=== PATIENT | female | born 1985 | race African-American/Black ===

== ENCOUNTER 2017-12-19 14:24 | Inpatient (IN) ==
--- NOTE | 2017-12-19 18:53 | ED ---
HPI General Chief Complaint: Psychiatric Symptoms Stated Complaint: Psy Time Seen by Provider: 12/20/17 19:38 Source: patient Mode of arrival: ambulatory Limitations: no limitations History of Present Illness HPI Narrative: 32-year-old female with a history of asthma presents to the emergency department for evaluation for suicidal ideation. She comes in voluntarily from [facility]. States that she arrived to [facility] around 1 PM today for evaluation and she was advised to come to the ED for further evaluation. She states that she has a history of depression. Says she had a baby 6 months ago and has been stressed out. She says her special education instructor's name is Dr. Chavez. She does not currently have a primary care physician. Her last checkup was approximately 1 week ago. Says that she has felt suicidal for the last 2 days but does not have a plan. She has a history of suicide attempt by cutting her wrist. She states she does take prenatals. Patient admits to using cocaine yesterday. She denies alcohol use however. MD complaint: suicidal ideation and feels depressed Onset (ago): day(s) Duration: constant History of same: Yes Relieving factors: none Exacerbating factors: none Context: recent drug abuse Associated psychiatric symptoms: depression and suicidal ideation Associated symptoms: denies other symptoms Treatments prior to arrival: none If self harm: admits thoughts of self harm Related Data Home Medications Medication Instructions Recorded Confirmed labetalol 100 mg PO TID 12/19/17 12/19/17 Previous Rx's Medication Instructions Recorded labetalol 200 mg PO BID #60 tab 12/22/17 Allergies Allergy/AdvReac Type Severity Reaction Status Date / Time No Known Allergies Allergy Verified 12/19/17 18:45 Review of Systems ROS: all other systems reviewed are negative [facility] History History Provided By: Patient Social History Social History Substance History: Active Abuse Smoking Status: Current every day smoker Tobacco Type: Cigarettes How Often Do You Have a Drink Containing Alcohol: Never Hx Recent Travel: No Exam Narrative Exam Narrative: GENERAL: WD, WN in NAD SKIN: Focused skin assessment warm/dry. HEAD: Atraumatic. Normocephalic. EYES: Pupils equal and round. No scleral icterus. No injection or drainage. ENT: No nasal bleeding or discharge. Mucous membranes pink and moist. NECK: Trachea midline. No JVD. CARDIOVASCULAR: Regular rate and rhythm. No murmur appreciated. RESPIRATORY: No accessory muscle use. Clear to auscultation. Breath sounds equal bilaterally. GASTROINTESTINAL: Abdomen gravid, nontender to palpation. No CVA tenderness. MUSCULOSKELETAL: No obvious deformities. No clubbing. No cyanosis. No edema. NEUROLOGICAL: Awake and alert. No obvious cranial nerve deficits. Motor grossly within normal limits. Normal speech. PSYCHIATRIC: Appropriate mood and affect; insight and judgment normal. Course Initial Documented Vital Signs Temperature 98.0 F 12/19/17 14:47 Pulse Rate 97 H 12/19/17 14:47 Respiratory Rate 20 12/19/17 14:47 Blood Pressure 161/76 H 12/19/17 14:47 Pulse Oximetry 100 12/19/17 14:47 Last Documented Vital Signs Temperature 98.3 F 12/20/17 22:41 Pulse Rate 112 H 12/21/17 01:04 Respiratory Rate 18 12/20/17 22:41 Blood Pressure 162/100 H 12/21/17 01:04 Pulse Oximetry 98 12/20/17 22:41 Medical Decision Making ELIZABETH Attestation ELIZABETH supervised visit: Yes Attestation: I, Dr. Sotelo, have reviewed the advance practice practitioner's documentation and am in agreement, met with the patient face to face, made the diagnosis, and the medical decision making was done by me. *My assessment and Findings: Patient seen and examined by me at 1900 on December 20. Is a 32-year-old female who is 5 months , becoming more hypertensive with blood pressure 188/110. Patient seen and examined by me has no complaints. She states she did have some leg swelling earlier in this but this resolved. No visual complaints. She also reports a history that her [facility] DIRECTOR had her do a 24-hour urine test and was told everything was fine. No history of preeclampsia with previous pregnancies. She has not had any bleeding abdominal pain or discharge. UA is been added, patient states she is on medication for her blood pressure for the . She is given us permission to go through her belongings to see what the pill bottle says. Of asked the nurses to do this for me so we can restart her on blood pressure medication. She was counseled to stop doing cocaine. The patient is on labetalol 100 mg p.o. twice daily, I think that this is probably less than desirable given the patient is using cocaine. I would like to have a UA on file so that I can adjust her medications with OB ED in consultation. For the time being a dose of hydralazine has been ordered. Patient has no protein in urine, have a low suspicion for preeclampsia, I recommend against the use of beta-blockers in this patient he uses cocaine. Recommend consultation with [facility] DIRECTOR for further management of her blood pressure. MDM Narrative Medical decision making narrative: 32-year-old female 5 months gravid presents to the emergency department with suicidal ideations for the last 2 days. She states she went to [facility] earlier today but was advised to come to the emergency department as patient is . She has no complaints other than feeling depressed and suicidal. She admits to using cocaine yesterday. Vital signs are stable. Patient is currently voluntary however, if patient chooses to leave, I recommend placing patient under [facility] act. Labs ordered for evaluation. POc OB US demonstrates and active, heart tones 143BPM, regular. Patient signed out to me at end of shift. 32 YO ~5month female presents to the ED requesting psychiatric evaluation. She denies SI or HI. She endorses using cocaine, last use yesterday. She endorses movement today, denies vaginal bleeding of abdominal pain. Vitals reviewed. Physical exam is reassuring. Bedside US shows active movement. No concerning abnormalities of the CBC or CMP. Patient is medically clear for psychiatric evaluation. Medical Screen Exam Complete: Yes Emergency Medical Condition: Yes Differential Diagnosis Differential Diagnosis: Suicide ideations, depression, malingering, cocaine abuse Lab Data Result diagrams: 12/19/17 19:30 12/21/17 09:26 Lab Results 12/19/17 12/19/17 12/19/17 Range/Units 19:30 19:30 22:15 WBC 6.5 (4.0-11.0) th/mm3 RBC 3.91 L (4.00-5.30) mil/mm3 Hgb 11.6 (11.6-15.3) gm/dL Hct 34.5 L (35.0-46.0) % MCV 88.5 (80.0-100.0) fL MCH 29.8 (27.0-34.0) pg MCHC 33.7 (32.0-36.0) % RDW 13.5 (11.6-17.2) % Plt Count 266 (150-450) th/mm3 MPV 7.1 (7.0-11.0) fL Neut % (Auto) 63.9 (16.0-70.0) % Lymph % (Auto) 23.0 (9.0-44.0) % Island % (Auto) 7.4 (0.0-8.0) % Eos % (Auto) 3.9 (0.0-4.0) % Baso % (Auto) 1.8 (0.0-2.0) % Neut # (Auto) 4.2 (1.8-7.7) th/mm3 Lymph # (Auto) 1.5 (1.0-4.8) th/mm3 Island # (Auto) 0.5 (0.0-0.9) th/mm3 Eos # (Auto) 0.3 (0.0-0.4) th/mm3 Baso # (Auto) 0.1 (0.0-0.2) th/mm3 WBC Differential . Differential Comment Auto diff final Sodium 139 (136-145) meq/L Potassium 3.7 (3.5-5.1) meq/L Chloride 107 (98-107) meq/L Carbon Dioxide 23.9 (21.0-32.0) meq/L Anion Gap 8 (5-15) meq/L BUN 8 (7-18) mg/dL Creatinine 0.60 (0.50-1.00) mg/dL Estimated GFR Greater than 89 (>89) mL/min Random Glucose 98 (74-106) mg/dL Hemoglobin A1c (4.3-6.0) % Calcium 8.5 (8.5-10.1) mg/dL Total Bilirubin 0.2 (0.2-1.0) mg/dL AST 9 L (15-37) U/L ALT 14 (10-53) U/L Alkaline Phosphatase 58 (45-117) U/L Total Protein 6.8 (6.4-8.2) g/dL Albumin 2.7 L (3.4-5.0) g/dL Triglycerides (42-150) mg/dL Cholesterol (120-200) mg/dL LDL Cholesterol, Calc (0-99) mg/dL HDL Cholesterol (40.0-60.0) mg/dL Cholesterol/HDL Ratio Ratio TSH 0.984 (0.358-3.740) uIU/mL Urine Color (Yellw/Straw) Urine Clarity (Clear) Urine pH (5.0-8.5) Ur Specific Deport (1.002-1.035) Urine Protein (Neg-Trace) mg/dL Urine Glucose (UA) (Negative) mg/dL Urine Ketones (Negative) mg/dL Urine Occult Blood (Negative) Urine Nitrate (Negative) Urine Bilirubin (Negative) Urine Urobilinogen (Less than 2) mg/dL Ur Leukocyte Esterase (Negative) Urine WBC (0-5) /hpf Ur Squamous Epith Cells (0-5) /hpf Ur Microscopic Review Urine Opiates Screen Neg (Neg) Ur Barbiturates Screen Neg (Neg) Ur Amphetamines Screen Neg (Neg) U Benzodiazepines Scrn Neg (Neg) Urine Cocaine Screen Pos H (Neg) U Cannabinoids Screen Neg (Neg) Serum Alcohol Less than 3 (0-5) mg/dL Chlam trachomat DNA PCR (Not Detect) HIV 1&2 Ab/P24 Ag 4thGn (Nonreactive) N.gonorrhoeae DNA (PCR) (Not Detect) Rubella Immunity Screen (Immune) Rubella Ab, Quant (10.0-500.0) IU/mL Blood Type Blood Type Recheck Antibody Screen 12/20/17 12/20/17 12/21/17 Range/Units 19:15 19:50 09:26 WBC (4.0-11.0) th/mm3 RBC (4.00-5.30) mil/mm3 Hgb (11.6-15.3) gm/dL Hct (35.0-46.0) % MCV (80.0-100.0) fL MCH (27.0-34.0) pg MCHC (32.0-36.0) % RDW (11.6-17.2) % Plt Count (150-450) th/mm3 MPV (7.0-11.0) fL Neut % (Auto) (16.0-70.0) % Lymph % (Auto) (9.0-44.0) % Island % (Auto) (0.0-8.0) % Eos % (Auto) (0.0-4.0) % Baso % (Auto) (0.0-2.0) % Neut # (Auto) (1.8-7.7) th/mm3 Lymph # (Auto) (1.0-4.8) th/mm3 Island # (Auto) (0.0-0.9) th/mm3 Eos # (Auto) (0.0-0.4) th/mm3 Baso # (Auto) (0.0-0.2) th/mm3 WBC Differential Differential Comment Sodium 140 (136-145) meq/L Potassium 3.4 L (3.5-5.1) meq/L Chloride 105 (98-107) meq/L Carbon Dioxide 23.1 (21.0-32.0) meq/L Anion Gap 12 (5-15) meq/L BUN 8 (7-18) mg/dL Creatinine 0.59 (0.50-1.00) mg/dL Estimated GFR Greater than 89 (>89) mL/min Random Glucose 101 (74-106) mg/dL Hemoglobin A1c (4.3-6.0) % Calcium 8.2 L (8.5-10.1) mg/dL Total Bilirubin (0.2-1.0) mg/dL AST (15-37) U/L ALT (10-53) U/L Alkaline Phosphatase (45-117) U/L Total Protein (6.4-8.2) g/dL Albumin (3.4-5.0) g/dL Triglycerides 68 (42-150) mg/dL Cholesterol 135 (120-200) mg/dL LDL Cholesterol, Calc 61 (0-99) mg/dL HDL Cholesterol 60.1 H (40.0-60.0) mg/dL Cholesterol/HDL Ratio 2.24 Ratio TSH (0.358-3.740) uIU/mL Urine Color Yellow (Yellw/Straw) Urine Clarity Clear (Clear) Urine pH 6.0 (5.0-8.5) Ur Specific Deport 1.011 (1.002-1.035) Urine Protein Negative (Neg-Trace) mg/dL Urine Glucose (UA) Negative (Negative) mg/dL Urine Ketones Negative (Negative) mg/dL Urine Occult Blood Negative (Negative) Urine Nitrate Negative (Negative) Urine Bilirubin Negative (Negative) Urine Urobilinogen Less than 2 (Less than 2) mg/dL Ur Leukocyte Esterase Moderate H (Negative) Urine WBC 3 (0-5) /hpf Ur Squamous Epith Cells 4 (0-5) /hpf Ur Microscopic Review Not Reportable Urine Opiates Screen (Neg) Ur Barbiturates Screen (Neg) Ur Amphetamines Screen (Neg) U Benzodiazepines Scrn (Neg) Urine Cocaine Screen (Neg) U Cannabinoids Screen (Neg) Serum Alcohol (0-5) mg/dL Chlam trachomat DNA PCR Not detected (Not Detect) HIV 1&2 Ab/P24 Ag 4thGn (Nonreactive) N.gonorrhoeae DNA (PCR) Not detected (Not Detect) Rubella Immunity Screen (Immune) Rubella Ab, Quant (10.0-500.0) IU/mL Blood Type Blood Type Recheck Antibody Screen 12/21/17 12/21/17 12/21/17 Range/Units 09:26 09:26 09:26 WBC (4.0-11.0) th/mm3 RBC (4.00-5.30) mil/mm3 Hgb (11.6-15.3) gm/dL Hct (35.0-46.0) % MCV (80.0-100.0) fL MCH (27.0-34.0) pg MCHC (32.0-36.0) % RDW (11.6-17.2) % Plt Count (150-450) th/mm3 MPV (7.0-11.0) fL Neut % (Auto) (16.0-70.0) % Lymph % (Auto) (9.0-44.0) % Island % (Auto) (0.0-8.0) % Eos % (Auto) (0.0-4.0) % Baso % (Auto) (0.0-2.0) % Neut # (Auto) (1.8-7.7) th/mm3 Lymph # (Auto) (1.0-4.8) th/mm3 Island # (Auto) (0.0-0.9) th/mm3 Eos # (Auto) (0.0-0.4) th/mm3 Baso # (Auto) (0.0-0.2) th/mm3 WBC Differential Differential Comment Sodium (136-145) meq/L Potassium (3.5-5.1) meq/L Chloride (98-107) meq/L Carbon Dioxide (21.0-32.0) meq/L Anion Gap (5-15) meq/L BUN (7-18) mg/dL Creatinine (0.50-1.00) mg/dL Estimated GFR (>89) mL/min Random Glucose (74-106) mg/dL Hemoglobin A1c 5.5 (4.3-6.0) % Calcium (8.5-10.1) mg/dL Total Bilirubin (0.2-1.0) mg/dL AST (15-37) U/L ALT (10-53) U/L Alkaline Phosphatase (45-117) U/L Total Protein (6.4-8.2) g/dL Albumin (3.4-5.0) g/dL Triglycerides (42-150) mg/dL Cholesterol (120-200) mg/dL LDL Cholesterol, Calc (0-99) mg/dL HDL Cholesterol (40.0-60.0) mg/dL Cholesterol/HDL Ratio Ratio TSH (0.358-3.740) uIU/mL Urine Color (Yellw/Straw) Urine Clarity (Clear) Urine pH (5.0-8.5) Ur Specific Deport (1.002-1.035) Urine Protein (Neg-Trace) mg/dL Urine Glucose (UA) (Negative) mg/dL Urine Ketones (Negative) mg/dL Urine Occult Blood (Negative) Urine Nitrate (Negative) Urine Bilirubin (Negative) Urine Urobilinogen (Less than 2) mg/dL Ur Leukocyte Esterase (Negative) Urine WBC (0-5) /hpf Ur Squamous Epith Cells (0-5) /hpf Ur Microscopic Review Urine Opiates Screen (Neg) Ur Barbiturates Screen (Neg) Ur Amphetamines Screen (Neg) U Benzodiazepines Scrn (Neg) Urine Cocaine Screen (Neg) U Cannabinoids Screen (Neg) Serum Alcohol (0-5) mg/dL Chlam trachomat DNA PCR (Not Detect) HIV 1&2 Ab/P24 Ag 4thGn Reflex H (Nonreactive) N.gonorrhoeae DNA (PCR) (Not Detect) Rubella Immunity Screen Indeterminate (Immune) Rubella Ab, Quant 7.8 L (10.0-500.0) IU/mL Blood Type Blood Type Recheck Antibody Screen 12/21/17 Range/Units 09:26 WBC (4.0-11.0) th/mm3 RBC (4.00-5.30) mil/mm3 Hgb (11.6-15.3) gm/dL Hct (35.0-46.0) % MCV (80.0-100.0) fL MCH (27.0-34.0) pg MCHC (32.0-36.0) % RDW (11.6-17.2) % Plt Count (150-450) th/mm3 MPV (7.0-11.0) fL Neut % (Auto) (16.0-70.0) % Lymph % (Auto) (9.0-44.0) % Island % (Auto) (0.0-8.0) % Eos % (Auto) (0.0-4.0) % Baso % (Auto) (0.0-2.0) % Neut # (Auto) (1.8-7.7) th/mm3 Lymph # (Auto) (1.0-4.8) th/mm3 Island # (Auto) (0.0-0.9) th/mm3 Eos # (Auto) (0.0-0.4) th/mm3 Baso # (Auto) (0.0-0.2) th/mm3 WBC Differential Differential Comment Sodium (136-145) meq/L Potassium (3.5-5.1) meq/L Chloride (98-107) meq/L Carbon Dioxide (21.0-32.0) meq/L Anion Gap (5-15) meq/L BUN (7-18) mg/dL Creatinine (0.50-1.00) mg/dL Estimated GFR (>89) mL/min Random Glucose (74-106) mg/dL Hemoglobin A1c (4.3-6.0) % Calcium (8.5-10.1) mg/dL Total Bilirubin (0.2-1.0) mg/dL AST (15-37) U/L ALT (10-53) U/L Alkaline Phosphatase (45-117) U/L Total Protein (6.4-8.2) g/dL Albumin (3.4-5.0) g/dL Triglycerides (42-150) mg/dL Cholesterol (120-200) mg/dL LDL Cholesterol, Calc (0-99) mg/dL HDL Cholesterol (40.0-60.0) mg/dL Cholesterol/HDL Ratio Ratio TSH (0.358-3.740) uIU/mL Urine Color (Yellw/Straw) Urine Clarity (Clear) Urine pH (5.0-8.5) Ur Specific Deport (1.002-1.035) Urine Protein (Neg-Trace) mg/dL Urine Glucose (UA) (Negative) mg/dL Urine Ketones (Negative) mg/dL Urine Occult Blood (Negative) Urine Nitrate (Negative) Urine Bilirubin (Negative) Urine Urobilinogen (Less than 2) mg/dL Ur Leukocyte Esterase (Negative) Urine WBC (0-5) /hpf Ur Squamous Epith Cells (0-5) /hpf Ur Microscopic Review Urine Opiates Screen (Neg) Ur Barbiturates Screen (Neg) Ur Amphetamines Screen (Neg) U Benzodiazepines Scrn (Neg) Urine Cocaine Screen (Neg) U Cannabinoids Screen (Neg) Serum Alcohol (0-5) mg/dL Chlam trachomat DNA PCR (Not Detect) HIV 1&2 Ab/P24 Ag 4thGn (Nonreactive) N.gonorrhoeae DNA (PCR) (Not Detect) Rubella Immunity Screen (Immune) Rubella Ab, Quant (10.0-500.0) IU/mL Blood Type B Positive Blood Type Recheck Required Antibody Screen Negative Discharge Plan Discharge Disposition Patient Disposition: 30 Still Patient Discharge Condition Condition: Stable Discharge Details Diagnosis: Depressed, Suicidal ideations Physicians Team ED Provider: Donny Sotelo Primary Care Provider: UNKNOWN, Attending Provider: Hieu Norton Other Providers: Alberto Hood ED Status: Left Department Discharge Information Discharge Date/Time: 12/20/17 22:12
[2017-12-19 20:21] LABS: Baso # (Auto) 0.1 th/mm3 (0.0-0.2); Baso % (Auto) 1.8 % (0.0-2.0); Eos # (Auto) 0.3 th/mm3 (0.0-0.4); Eos % (Auto) 3.9 % (0.0-4.0); Hematocrit 34.5 % (35.0-46.0); Hemoglobin 11.6 gm/dL (11.6-15.3); Lymph # (Auto) 1.5 th/mm3 (1.0-4.8); Mean Corpuscular HGB Conc 33.7 % (32.0-36.0); Mean Corpuscular Hemoglobin 29.8 pg (27.0-34.0); Mean Corpuscular Volume 88.5 fL (80.0-100.0); Mean Platelet Volume 7.1 fL (7.0-11.0); Mono # (Auto) 0.5 th/mm3 (0.0-0.9); Mono % (Auto) 7.4 % (0.0-8.0); Neut # (Auto) 4.2 th/mm3 (1.8-7.7); Neut % (Auto) 63.9 % (16.0-70.0); Platelet Count 266 th/mm3 (150-450); Red Blood Count 3.91 mil/mm3 (4.00-5.30); Red Cell Distribution Width 13.5 % (11.6-17.2); White Blood Count 6.5 th/mm3 (4.0-11.0)
[2017-12-19 20:45] LABS: Albumin 2.7 g/dL (3.4-5.0); Anion Gap 8 meq/L (5-15); Aspartate Aminotransferase 9 U/L (15-37); Blood Urea Nitrogen 8 mg/dL (7-18); Calcium 8.5 mg/dL (8.5-10.1); Carbon Dioxide 23.9 meq/L (21.0-32.0); Chloride 107 meq/L (98-107); Glomerular Filtration Rate Greater Than 89 mL/min (>89); Glucose,Random 98 mg/dL (74-106); Potassium 3.7 meq/L (3.5-5.1); Sodium 139 meq/L (136-145)
[2017-12-19 20:46] LABS: Alanine Aminotransferase 14 U/L (10-53)
[2017-12-19 20:56] LABS: Alkaline Phosphatase 58 U/L (45-117); Thyroid Stimulating Hormone 0.984 uIU/mL (0.358-3.740); Total Protein 6.8 g/dL (6.4-8.2)
[2017-12-19 22:42] LABS: Amphetamine Screen,Urine Neg (Neg); Barbiturate Screen,Urine Neg (Neg); Cannabinoid Screen,Urine Neg (Neg); Cocaine Screen,Urine Pos (Neg)
[2017-12-19 22:56] LABS: Opiate Screen,Urine Neg (Neg)
[2017-12-20] MEDS ORDERED: hydrALAZINE 25 MG Tablet PO ONE (19:41)
--- NOTE | 2017-12-20 20:02 | ED ---
HPI - Psych - General Source: patient, RN notes reviewed Mode of arrival: ambulatory Limitations: no limitations - History of Present Illness MD complaint: suicidal ideation, feels depressed Onset (ago): day(s) Duration: constant History of same: Yes Relieving factors: none Exacerbating factors: none Context: recent drug abuse, not taking psychiatric medications, other Associated psychiatric symptoms: depression, suicidal ideation () Associated symptoms: denies other symptoms Treatments prior to arrival: none If self harm: admits thoughts of self harm - General Chief Complaint: Psychiatric Symptoms Stated Complaint: Psy Time Seen by Provider: 12/20/17 19:38 - History of Present Illness HPI Narrative: History of Present Illness HPI Narrative: 32-year-old, single, female, , approximately 5 months ,lives with her cousin and her aunt, with a history of depression, hx of suicidal gestures by cutting her wrists, cocaine use disorder, who presents to the emergency department on a voluntary status for psychiatric evaluation with chief complaint of increase in symptoms of depression, feeling overwhelmed, as well as reporting suicidal ideation. She is sent from [facility] as she is out of their scope of practice. She states that she has a history of post depression. She has a six month old infant. All her children have been adopted by family members due to her substance abuse. EMR reviewed. No previous contact with [facility] psychiatry. Labs reviewed. Current toxicology is positive for cocaine. Her blood pressure has been elevated and ED provider, Dr. Sotelo has been made aware. Patient is seen in J pod. She is alert and oriented. Speech is clear and of normal rate and tone. Patient with decreased eye contact. She continues to endorse depressed mood, feeling overwhelmed, suicidal ideation. Her plan was to take pills when she was at home. She contracts for safety here in the hospital. In terms of her substance use she states that she uses cocaine approximately 3 times a week. Denies any other substance use (Oliva,Yesenia) - Related Data Home Medications Medication Instructions Recorded Confirmed labetalol 100 mg PO BID 12/19/17 12/19/17 Allergies Allergy/AdvReac Type Severity Reaction Status Date / Time No Known Allergies Allergy Verified 12/19/17 18:45 [facility] - History History Provided By: Patient - Medical History Medical History: Medical History (Last Updated 12/19/17 @ 18:47 by Krystal Liza) Asthma Cocaine abuse Cocaine abuse affecting - Tobacco History Tobacco Use In Past 30 Days: Yes Smoking Status: Current every day smoker Tobacco Type: Cigarettes - Alcohol History How Often Do You Have a Drink Containing Alcohol: Never - Substance Use History Substance History: Active Abuse - Substance Use Type Crack/Cocaine Status: Active Route Used: Inhalation - Travel History Recent Travel in the [place] Within the Last 8 Weeks: No Recent Travel Out of the Country Within the Last 8 Weeks: No - Immunization History Tetanus Immunization: <5 Years Psychiatric History - Psychiatric History Psychiatric Treatment History: Denies Previous Treatment History of Inpatient Treatment: Yes Firearms in Home: No - Psychiatric History Reports history of inpatient treatment at [facility] after the delivery of her last child. She was prescribed medication but stopped after she became again. One previous history of suicidal ideation with intent to cut her wrists. (Yesenia Oliva) Physical Exam - General Limitations: no limitations Mental Status Examination Consciousness: Alert Orientation: x4 Motor Activity: Normal gait Speech: Hesitant Language: Adequate Fund of Knowledge: Adequate Attention and Concentration: Adequate Memory: Unremarkable Mood: Sad Affect: Sad Thought Process & Associations: Intact, Logical, Goal directed Thought Content: Appropriate Hallucination Type: None Delusion Type: None Suicidal Ideation: Yes Suicidal Plan: Yes Suicidal Intention: No Homicidal Ideation: No Homicidal Plan: No Homicidal Intention: No Insight: Fair Judgment: Poor Initial Documented Vital Signs Temperature 98.0 F 12/19/17 14:47 Pulse Rate 97 H 12/19/17 14:47 Respiratory Rate 20 12/19/17 14:47 Blood Pressure 161/76 H 12/19/17 14:47 Pulse Oximetry 100 12/19/17 14:47 Last Documented Vital Signs Temperature 98.0 F 12/19/17 14:47 Pulse Rate 98 H 12/20/17 19:50 Respiratory Rate 16 12/20/17 19:50 Blood Pressure 185/114 H 12/20/17 19:50 Pulse Oximetry 100 12/20/17 19:50 MDM - Psych - Diagnosis (1) Depressive disorder Status: Acute (2) Cocaine abuse Status: Acute (3) Substance induced mood disorder Status: Acute - Lab Data Result diagrams: 12/19/17 19:30 12/19/17 19:30 - MDM Narrative Medical decision making narrative: 32-year-old female with history of depression who is currently approximately 20 weeks gestation. She presents to the ED on a voluntary basis after she was seen at [facility]. She is reporting depressed mood with suicidal ideation with plan of taking her pills. The patient also reports continued use of cocaine throughout her . The patient meets criteria for inpatient psychiatric treatment for further evaluation, safety and stabilization. (Yesenia Oliva) - Lab Data Lab Results 12/19/17 12/19/17 12/19/17 Range/Units 19:30 19:30 22:15 WBC 6.5 (4.0-11.0) th/mm3 RBC 3.91 L (4.00-5.30) mil/mm3 Hgb 11.6 (11.6-15.3) gm/dL Hct 34.5 L (35.0-46.0) % MCV 88.5 (80.0-100.0) fL MCH 29.8 (27.0-34.0) pg MCHC 33.7 (32.0-36.0) % RDW 13.5 (11.6-17.2) % Plt Count 266 (150-450) th/mm3 MPV 7.1 (7.0-11.0) fL Neut % (Auto) 63.9 (16.0-70.0) % Lymph % (Auto) 23.0 (9.0-44.0) % [place] % (Auto) 7.4 (0.0-8.0) % Eos % (Auto) 3.9 (0.0-4.0) % Baso % (Auto) 1.8 (0.0-2.0) % Neut # (Auto) 4.2 (1.8-7.7) th/mm3 Lymph # (Auto) 1.5 (1.0-4.8) th/mm3 [place] # (Auto) 0.5 (0.0-0.9) th/mm3 Eos # (Auto) 0.3 (0.0-0.4) th/mm3 Baso # (Auto) 0.1 (0.0-0.2) th/mm3 WBC Differential . Differential Comment Auto diff final Sodium 139 (136-145) meq/L Potassium 3.7 (3.5-5.1) meq/L Chloride 107 (98-107) meq/L Carbon Dioxide 23.9 (21.0-32.0) meq/L Anion Gap 8 (5-15) meq/L BUN 8 (7-18) mg/dL Creatinine 0.60 (0.50-1.00) mg/dL Estimated GFR Greater than 89 (>89) mL/min Random Glucose 98 (74-106) mg/dL Calcium 8.5 (8.5-10.1) mg/dL Total Bilirubin 0.2 (0.2-1.0) mg/dL AST 9 L (15-37) U/L ALT 14 (10-53) U/L Alkaline Phosphatase 58 (45-117) U/L Total Protein 6.8 (6.4-8.2) g/dL Albumin 2.7 L (3.4-5.0) g/dL TSH 0.984 (0.358-3.740) uIU/mL Urine Opiates Screen Neg (Neg) Ur Barbiturates Screen Neg (Neg) Ur Amphetamines Screen Neg (Neg) U Benzodiazepines Scrn Neg (Neg) Urine Cocaine Screen Pos H (Neg) U Cannabinoids Screen Neg (Neg) Serum Alcohol Less than 3 (0-5) mg/dL
[2017-12-20] MEDS ORDERED: Aluminum/Magnesium/Simethacone Susp 30 ML UDC PO PRN (20:21)
[2017-12-20 20:29] LABS: Bilirubin,Urine Negative (Negative); Clarity,Urine Clear (Clear); Color,Urine Yellow (Yellw/Straw); Glucose,Urine (UA) Negative (Negative); Leukocyte Esterase,Urine Moderate (Negative); Nitrite,Urine Negative (Negative); Specific Gravity,Urine 1.011 (1.002-1.035); Squamous Epithelial Cell,Urine 4 /hpf (0-5)
[2017-12-20 22:42] VITALS: RESP 18; TEMP 98.3; O2SAT 98
[2017-12-20] MEDS ORDERED: Acetaminophen 325 MG Tablet PO PRN (22:56)
[2017-12-20] MEDS ORDERED: Zolpidem Tartrate 5 MG Tablet PO PRN (22:56)
[2017-12-20] MEDS ORDERED: Labetalol HCl Inj 100 MG/20 ML Vial IV.PUSH PRN ×3 (22:56→23:19)
[2017-12-20] MEDS ORDERED: Docusate Sodium 100 MG Capsule PO PRN (22:56)
[2017-12-20] MEDS ORDERED: Labetalol 200 MG Tablet PO SCH (23:10)
--- NOTE | 2017-12-20 23:26 | P.CONOB ---
History of Present Illness Consult date: 12/20/17 Requesting Physician: Yesenia Oliva Reason for Consult: HTN in preg Primary Care Physician: UNKNOWN Dr. Diop in [place] Chief Complaint: High blood pressure History of Present Illness: Patient is a 32-year-old black female with 3 prior previous vaginal deliveries last one 6 months ago presents, at approximately 20 weeks gestation [address] Diop in [place] for her care, and the patient is admitted to the [facility] for a evaluation of mental illness as well as drug use, she admits to using cocaine 3-4 times a week and her drug screen is positive for cocaine on admission. Patient also describes depression/anxiety with suicidal ideation with thoughts of cutting her wrists or injuring herself in someway.,; we are being consulted because of severe high blood pressure while at this time, blood pressures are 180-200/90-110. Patient has a history of chronic hypertension while every time she has been she has had high blood pressure issues and needed medication. When she is between pregnancies she has not needed medications to control her blood pressure., patient states she takes labetalol 3 times a day 200mg but she is not been taking that today and is not been given that by the hospital staff. She did get 1 dose of p.o. Apresoline in the emergency room one time. Patient is having no other complaints at this time no headache visual changes or abdominal pain. She denies bleeding or leakage of fluid. Weeks Gestation:: 20 Para: 3 : 4 Review of Systems Constitutional: Denies anorexia, Denies body ache(s), Denies chills, Denies daytime sleepiness, Denies excessive sweating, Denies fatigue, Denies fever(s), Denies headache(s), Denies increased appetite, Denies lack of energy, Denies malaise, Denies night sweats, Denies weakness, Denies weight gain, Denies weight loss, Denies other Eyes: Denies blind spots, Denies blurry vision, Denies bulging eyes, Denies change in vision, Denies double vision, Denies discharge, Denies dry eyes, Denies floaters, Denies irritation, Denies itchy eyes, Denies loss of vision, Denies pain, Denies requires corrective lenses, Denies sensitivity to light, Denies other Cardiovascular: Denies chest pain, Denies chest pain at rest, Denies chest pain with activity, Denies excessive sweating, Denies fainting, Denies fast heart rate, Denies foot swelling, Denies generalized swelling, Denies irregular heart rhythm, Denies leg pain with activity, Denies leg sores, Denies leg swelling, Denies lightheadedness, Denies radiating jaw, neck or arm pain, Denies rapid, pounding, or irregular heartbeat, Denies shortness of breath, Denies shortness of breath with activity, Denies shortness of breath when lying down, Denies shortness of breath causing sudden awakening, Denies slow heart rate, Denies other Respiratory: Denies change in phlegm color, Denies chest congestion, Denies cough, Denies coughing up blood, Denies excessive phlegm production, Denies pain on inspiration, Denies pain with cough, Denies shortness of breath, Denies shortness of breath with activity, Denies snoring, Denies stridor, Denies wheezing, Denies other Gastrointestinal: Denies abdominal pain, Denies belching, Denies black, tarry stools, Denies bloating, Denies bright, red blood in stools, Denies change in bowel habits, Denies constant urge to pass stool, Denies change in stools, Denies coffee ground vomit, Denies constipation, Denies cramping, Denies difficulty swallowing, Denies excessive passing of gas, Denies feeling full early, Denies heartburn, Denies incontinent of stools, Denies loose stools, Denies nausea, Denies pain with swallowing, Denies vomiting, Denies vomiting blood, Denies other Genitourinary: Denies abnormal periods, Denies abnormal vaginal bleeding, Denies absent period, Denies bleeding between periods, Denies blood in urine, Denies difficulty starting urination, Denies difficulty urinating, Denies dribbling after urination, Denies frequent nighttime urination, Denies genital itching, Denies genital lesions, Denies heavy periods, Denies hot flashes, Denies light periods, Denies nipple discharge, Denies painful intercourse, Denies painful periods, Denies painful urination, Denies pelvic pain, Denies prolapse symptoms, Denies sexual problems, Denies side pain, Denies urinary incontinence, Denies urinary urgency, Denies vaginal discharge, Denies vaginal dryness, Denies vaginal odor, Denies vaginal itching, Denies other Neurologic: Denies abnormal hearing, Denies abnormal movements, Denies abnormal speech, Denies abnormal walking, Denies behavioral changes, Denies burning sensations, Denies confusion, Denies dizziness, Denies fainting, Denies frequent falls, Denies headache(s), Denies lack of coordination, Denies localized weakness, Denies loss of vision, Denies memory loss, Denies numbness, Denies other visual disturbances, Denies radiating pain, Denies restless legs, Denies convulsions, Denies seizure-like activity, Denies sensory deficit, Denies tingling, Denies tingling/numbness/burning sensations, Denies tremor(s), Denies unsteadiness, Denies weakness, Denies other Psychiatric: Reports anxiety, Reports depression, Reports thoughts of hurting/ killing yourself PMFSH - History History Provided By: Patient - Medical History Medical History: Medical History (Last Updated 12/20/17 @ 23:19 by Alberto Hood MD) Hypertension affecting in second trimester Asthma Cocaine abuse Cocaine abuse affecting - Tobacco History Tobacco Use In Past 30 Days: Yes Smoking Status: Current every day smoker Tobacco Type: Cigarettes - Alcohol History How Often Do You Have a Drink Containing Alcohol: Never - Substance Use History Substance History: Active Abuse - Substance Use Type Crack/Cocaine Status: Active Route Used: Inhalation - Travel History History of Recent Travel: No Recent Travel in the [place] Within the Last 8 Weeks: No Recent Travel Out of the Country Within the Last 8 Weeks: No - Immunization History Tetanus Immunization: <5 Years Medications and Allergies Active Medications: Active Medications Acetaminophen (Tylenol) 650 mg PO Q4H PRN PRN Reason: PAIN SCALE 1 TO 2 Al Hydrox/Mg Hydrox/Simethicone (Mag-Al Plus Susp Liq) 30 ml PO Q6H PRN PRN Reason: DYSPEPSIA Al Hydroxide/Mg Hydroxide (Milk Of Magnesia Liq) 30 ml PO Q12H PRN PRN Reason: Mild Constipation Albuterol (Ventolin Hfa Inh) 2 puff INH Q4H PRN PRN Reason: BRONCOSPASM Calcium Gluconate (Calcium Gluconate Inj) 1 gm IV.PUSH PRN PRN PRN Reason: Magnesium toxicity Docusate Sodium (Colace) 100 mg PO BID PRN PRN Reason: CONSTIPATION Lactated Ringer's (Lr 1000 Ml Inj) 1,000 mls @ 75 mls/hr IV.CONT .[id number] TULIO Labetalol HCl (Trandate Inj) 20 mg IV.PUSH NOW PRN PRN Reason: SEE LABEL COMMENTS Labetalol HCl (Trandate Inj) 40 mg IV.PUSH NOW PRN PRN Reason: SEE LABEL COMMENTS Labetalol HCl (Trandate Inj) 80 mg IV.PUSH NOW PRN PRN Reason: SEE LABEL COMMENTS Labetalol HCl (Trandate) 200 mg PO TID TULIO Ondansetron HCl (Zofran Odt) 4 mg PO Q6H PRN PRN Reason: NAUSEA OR VOMITING Ondansetron HCl (Zofran Inj) 4 mg IV.PUSH Q6H PRN PRN Reason: NAUSEA OR VOMITING Vit/Calcium/Iron/Folic Ac (Stuartnatal Plus 3) 1 tab PO DAILY [facility] Sennosides (Senokot) 17.2 mg PO Q12H PRN PRN Reason: Moderate Constipation Sodium Chloride (Ns Flush) 2 ml IV.FLUSH BID TULIO Sodium Chloride (Ns Flush) 2 ml IV.FLUSH PRN PRN PRN Reason: FLUSH AFTER USING IV ACCESS Zolpidem Tartrate (Ambien) 5 mg PO HS PRN PRN Reason: INSOMNIA Allergies Allergy/AdvReac Type Severity Reaction Status Date / Time No Known Allergies Allergy Verified 12/19/17 18:45 Home Medications Medication Instructions Recorded Confirmed Type labetalol 100 mg PO BID 12/19/17 12/19/17 History Exam Vital signs: Vital Signs 12/20/17 07:00 12/20/17 08:12 12/20/17 15:54 Temperature Pulse Rate 98 H 90 103 H Respiratory Rate 18 15 17 Blood Pressure 165/78 H 138/69 145/72 H Pulse Oximetry 100 98 99 12/20/17 18:42 12/20/17 19:50 12/20/17 21:17 Temperature Pulse Rate 97 H 98 H 107 H Respiratory Rate 20 16 Blood Pressure 188/110 H 185/114 H 184/92 H Pulse Oximetry 99 100 12/20/17 22:41 Temperature 98.3 F Pulse Rate 102 H Respiratory Rate 18 Blood Pressure 202/116 H Pulse Oximetry 98 Intake & Output 09/28/18 09/28/18 09/29/18 06:59 18:59 06:59 Weight 107.5 kg Other: Weight On Admission 107.5 kg Narrative: GENERAL: Well-nourished, well-developed slightly obese patient. SKIN: Warm and dry. HEAD: Normocephalic and atraumatic. EYES: No scleral icterus. No injection or drainage. ENT: No nasal drainage noted. Mucous membranes pink. Airway patent. NECK: Supple, trachea midline. No JVD. CARDIOVASCULAR: Positive slight tachycardia without murmurs, gallops, or rubs. RESPIRATORY: Breath sounds equal bilaterally. No accessory muscle use. BREASTS: Bilateral exam showed no masses , no retractions, no nipple discharge. ABDOMEN/GI: Abdomen soft, non-tender, bowel sounds present, no rebound, no guarding Gravid to [20-] weeks size Fundal Height: [At umbilicus-] GENITOURINARY: EXTREMITIES: No cyanosis or edema. BACK: Nontender without obvious deformity. No CVA tenderness. NEUROLOGICAL: Awake and alert. Motor and sensory grossly within normal limits. Five out of 5 muscle strength in all muscle groups. Normal speech. DTRs within normal limits Results - Labs CBC & Chem 7: 12/19/17 19:30 12/19/17 19:30 Labs: Laboratory Results - last 24 hr 12/20/17 19:50 Urine Color Yellow Urine Clarity Clear Urine pH 6.0 Ur Specific [place] 1.011 Urine Protein Negative Urine Glucose (UA) Negative Urine Ketones Negative Urine Occult Blood Negative Urine Nitrate Negative Urine Bilirubin Negative Urine Urobilinogen Less than 2 Ur Leukocyte Esterase Moderate H Urine WBC 3 Ur Squamous Epith Cells 4 Ur Microscopic Review Not Reportable Assessment and Plan - Diagnosis (1) Chronic hypertension affecting Code(s): O10.919 - Unspecified pre-existing hypertension complicating , unspecified trimester Status: Acute (2) Cocaine abuse Code(s): F14.10 - Cocaine abuse, uncomplicated Status: Acute (3) Suicidal ideations Code(s): R45.851 - Suicidal ideations Status: Acute (4) Asthma affecting in second trimester Code(s): O99.512 - Diseases of the respiratory system complicating , second trimester; J45.909 - Unspecified asthma, uncomplicated Status: Acute (5) 20 weeks gestation of Code(s): Z3A.20 - 20 weeks gestation of Status: Acute - Plan This multiparous patient is approximately 20 weeks gestation who presents with history of chronic hypertension and severe hypertensive episodes today with blood pressures elevated to 200/110, she has not been taking her labetalol today when she tells me she takes 200 mg 3 times a day so we will restart this immediately, will get IV access and begin IV antihypertensives with labetalol per the hypertensive in protocol. Will check labs as well, obtain an obstetric ultrasound in the morning, begin a 24-hour urine for protein & creatinine clearance. Would recommend the admitting medical team follow-up on drug use, drug rehabilitation and therapy. I explained to the patient directly tonight that cocaine can cause the baby to due to placental abruption and that also could be at risk for her life as well, and I explained she should not do drugs especially cocaine while or any other time
[2017-12-21 01:04] VITALS: BP 162/100; PULSE 112
--- NOTE | 2017-12-21 08:16 | P.OBANTE ---
Subjective Interval History: Altered press patient at approximately 20 weeks gestation with chronic hypertension now better controlled now on her p.o. labetalol blood pressure this morning 140/90, the patient having small headache this morning but better than last night when she came in her blood pressures were much higher Objective Vital Signs and I&O: Vital Signs 12/20/17 15:54 12/20/17 18:42 12/20/17 19:50 Temperature Pulse Rate 103 H 97 H 98 H Respiratory Rate 17 20 16 Blood Pressure 145/72 H 188/110 H 185/114 H Pulse Oximetry 99 99 100 12/20/17 21:17 12/20/17 22:41 12/21/17 01:04 Temperature 98.3 F Pulse Rate 107 H 102 H 112 H Respiratory Rate 18 Blood Pressure 184/92 H 202/116 H 162/100 H Pulse Oximetry 98 Intake & Output 12/20/17 12/21/17 12/21/17 18:59 06:59 18:59 Weight 107.5 kg Other: Weight On Admission 107.5 kg Lab and Micro Results: Laboratory Results - last 24 hr 12/20/17 12/20/17 19:15 19:50 Urine Color Yellow Urine Clarity Clear Urine pH 6.0 Ur Specific [place] 1.011 Urine Protein Negative Urine Glucose (UA) Negative Urine Ketones Negative Urine Occult Blood Negative Urine Nitrate Negative Urine Bilirubin Negative Urine Urobilinogen Less than 2 Ur Leukocyte Esterase Moderate H Urine WBC 3 Ur Squamous Epith Cells 4 Ur Microscopic Review Not Reportable Chlam trachomat DNA PCR Not detected N.gonorrhoeae DNA (PCR) Not detected Physical Exam: GENERAL: Well-nourished, well-developed patient. CARDIOVASCULAR: Regular rate and rhythm without murmurs, gallops, or rubs. RESPIRATORY: Breath sounds equal bilaterally. No accessory muscle use. ABDOMEN/GI: Abdomen soft, non-tender. Fundus: [At umbilicus-] EXTREMITIES: No cyanosis or edema, non-tender, without signs of DVT. Assessment and Plan - Diagnosis (1) Chronic hypertension affecting Code(s): O10.919 - Unspecified pre-existing hypertension complicating , unspecified trimester Status: Acute (2) Cocaine abuse Code(s): F14.10 - Cocaine abuse, uncomplicated Status: Acute (3) Suicidal ideations Code(s): R45.851 - Suicidal ideations Status: Acute (4) Asthma affecting in second trimester Code(s): O99.512 - Diseases of the respiratory system complicating , second trimester; J45.909 - Unspecified asthma, uncomplicated Status: Acute (5) 20 weeks gestation of Code(s): Z3A.20 - 20 weeks gestation of Status: Acute - Plan This multiparous patient is approximately 20 weeks gestation who presents with history of chronic hypertension and severe hypertensive episodes today with blood pressures elevated to 200/110, she has not been taking her labetalol today when she tells me she takes 200 mg 3 times a day so we will restart this immediately, will get IV access and begin IV antihypertensives with labetalol per the hypertensive in protocol. Will check labs as well, obtain an obstetric ultrasound in the morning, begin a 24-hour urine for protein & creatinine clearance. Would recommend the admitting medical team follow-up on drug use, drug rehabilitation and therapy. I explained to the patient directly tonight that cocaine can cause the baby to due to placental abruption and that also could be at risk for her life as well, and I explained she should not do drugs especially cocaine while or any other time 12/21/2017 plan--continue p.o. antihypertensives, check lab, check obstetric ultrasound, and continue the 24-hour urine protein collection
[2017-12-21] MEDS ORDERED: Prenatal Vit/Ca/Iron/Folic Acid Tablet PO SCH (09:00)
[2017-12-21 10:28] LABS: Anion Gap 12 meq/L (5-15); Blood Urea Nitrogen 8 mg/dL (7-18); Calcium 8.2 mg/dL (8.5-10.1); Carbon Dioxide 23.1 meq/L (21.0-32.0); Chloride 105 meq/L (98-107); Cholesterol 135 mg/dL (120-200); Glomerular Filtration Rate Greater Than 89 mL/min (>89); Glucose,Random 101 mg/dL (74-106); Potassium 3.4 meq/L (3.5-5.1); Sodium 140 meq/L (136-145)
[2017-12-21 10:31] LABS: Chol/HDL Ratio 2.24 Ratio; HDL Cholesterol 60.1 mg/dL (40.0-60.0); LDL Cholesterol,Calculated 61 mg/dL (0-99); Triglycerides 68 mg/dL (42-150)
[2017-12-21 13:13] LABS: Hemoglobin A1c 5.5 % (4.3-6.0)
[2017-12-24 15:44] LABS: HIV 1 Antibody Positive (Negative); HIV 2 Antibody Negative (Negative)
== END 2017-12-21 01:55 | disposition short-term general hospital (02) ==
LOC: NEPD 14:24 → NEDA 12-20 20:26 → H4EA 12-20 22:16
PROVIDERS: ADMIT Psychiatry & Neurology Psychiatry; ATTEND Psychiatry & Neurology Psychiatry

== ENCOUNTER 2017-12-21 03:13 | Inpatient (IN) ==
[2017-12-21] MEDS ORDERED: Labetalol HCl Inj 100 MG/20 ML Vial IV.PUSH ONE (03:47)
[2017-12-21] MEDS ORDERED: Labetalol HCl Inj 100 MG/20 ML Vial IV.PUSH PRN (04:51)
--- NOTE | 2017-12-21 05:02 | P.HPIM ---
History of Present Illness Primary Care Physician: UNKNOWN Chief Complaint: hypertension History of Present Illness: 32 y/o female with a history of asthma and hypertension and is currently 20 weeks was a transfer from medical [facility] for elevated BP. OB DR. Hood refused to admit patient so [facility] admitted to aid in BP control. Patient originary came in voluntarily from [facility] for evaluation of depression. She states she has been stressed out ever since having a baby 6 months ago. She has had suicidal thoughts for the last 2 days but does not have a plan. She has a history of suicide attempt by cutting her wrist. She has been using cocaine daily, and states she did not take her blood pressure pills yesterday. Inpatient Certification: I certify that the inpatient services were ordered in accordance with Medicare regulations governing the order. This includes certification that hospital inpatient services are reasonable and necessary and in the case of services not specified as inpatient-only under 42 CFR 419.22(n), that they are appropriately provided as inpatient services in accordance to with the 2-midnight benchmark under 43 CFR 412.3(e) Estimated Total Length of Stay (Days): 3 Plans for Post Hospital Care: Not yet determined [facility] - History History Provided By: Patient - Medical / Surgical Hx Neg / Unobtainable Surgical History: No Previous Surgery - Medical History Medical History: Medical History (Last Updated 12/21/17 @ 04:55 by KARI Beach) No significant past surgical history Asthma Cocaine abuse Cocaine abuse affecting Hypertension affecting in second trimester - Family History Family History: Family History (Last Reviewed 12/21/17 @ 04:55 by KARI Beach) Other HTN (hypertension) - Social History I have reviewed the patient's Social History: Yes - Tobacco History Smoking Status: Current every day smoker Tobacco Type: Cigarettes - Alcohol History How Often Do You Have a Drink Containing Alcohol: Never - Substance Use History Substance History: Active Abuse - Travel History History of Recent Travel: No Medications and Allergies Allergies Allergy/AdvReac Type Severity Reaction Status Date / Time No Known Allergies Allergy Verified 12/19/17 18:45 Home Medications Medication Instructions Recorded Confirmed Type labetalol 100 mg PO TID 12/19/17 12/19/17 History Exam Narrative: GENERAL: This is a well-nourished, well-developed patient, in no apparent distress. CARDIOVASCULAR: Regular rate and rhythm without murmurs, gallops, or rubs. RESPIRATORY: Clear to auscultation. Breath sounds equal bilaterally. No wheezes , rales, or rhonchi. GASTROINTESTINAL: Abdomen soft, non-tender, nondistended. Normal active bowel sounds MUSCULOSKELETAL: Extremities without clubbing, cyanosis, or edema. NEURO: Alert & Oriented x4 to person, place, time, situation. Moves all ext x4 Caprini VTE Risk Assessment Caprini VTE Risk Assessment: No/Low Risk (score <= 1) Caprini Risk Assessment Model: Point Value = 1 Point Value = 2 Point Value = 3 Point Value = 5 Age 41-60 Minor surgery BMI > 25 kg/m2 Swollen legs Varicose veins or History of unexplained or recurrent spontaneous Oral contraceptives or hormone replacement Sepsis (< 1 month) Serious lung disease, including pneumonia (< 1 month) Abnormal pulmonary function Acute myocardial infarction Congestive heart failure (< 1 month) History of inflammatory bowel disease Medical patient at bed rest Age 61-74 Arthroscopic surgery Major open surgery (> 45 min) Laparoscopic surgery (> 45 min) Malignancy Confined to bed (> 72 hours) Immobilizing plaster cast Central venous access Age >= 75 History of VTE Family history of VTE Factor V Leiden Prothrombin [id number] Lupus anticoagulant Anticardiolipin antibodies Elevated serum homocysteine Heparin-induced thrombocytopenia Other congenital or acquired thrombophilia Stroke (< 1 month) Elective arthroplasty Hip, pelvis, or leg fracture Acute spinal cord injury (< 1 month) Prophylaxis Regimen: Total Risk Factor Score Risk Level Prophylaxis Regimen 0-1 Low Early ambulation 2 Moderate Order ONE of the following: *Sequential Compression Device (SCD) *Heparin 5000 units SQ BID 3-4 Higher Order ONE of the following medications: *Heparin 5000 units SQ TID *Enoxaparin/Lovenox 40 mg SQ daily (WT < 150 kg, CrCl > 30 mL/min) *Enoxaparin/Lovenox 30 mg SQ daily (WT < 150 kg, CrCl > 10-29 mL/min) *Enoxaparin/Lovenox 30 mg SQ BID (WT < 150 kg, CrCl > 30 mL/min) AND/OR *Sequential Compression Device (SCD) 5 or more Highest Order ONE of the following medications: *Heparin 5000 units SQ TID (Preferred with Epidurals) *Enoxaparin/Lovenox 40 mg SQ daily (WT < 150 kg, CrCl > 30 mL/min) *Enoxaparin/Lovenox 30 mg SQ daily (WT < 150 kg, CrCl > 10-29 mL/min) *Enoxaparin/Lovenox 30 mg SQ BID (WT < 150 kg, CrCl > 30 mL/min) AND *Sequential Compression Device (SCD) Assessment and Plan - Plan 32 y/o female with a history of asthma and hypertension and is currently 20 weeks was a transfer from medical psych for elevated BP. Hypertension urgency BP 202/116 in medical psych -Cont home labetalol while in hospital, due to cocaine abuse it is advised for patient not to take it outpatient -monitor vitals -Trandate prn , 20 weeks gestation -Consult placed to OB for evaluation of BP and medication recommendation -Prenatals ordered -US ordered for heart tones Depression, suicidal thoughts with no plan -Consult psych, patient may benefit from psych admission once BP is stable -Sitter Cocaine abuse -Encouraged to quit, patient states she wants to, she has limited family support DVT prophylaxis: SCDs Discussed Condition With: Patient and RN
[2017-12-21] MEDS ORDERED: Zolpidem Tartrate 5 MG Tablet PO PRN (08:14)
[2017-12-21] MEDS ORDERED: Aluminum/Magnesium/Simethacone Susp 30 ML UDC PO PRN (08:15)
[2017-12-21] MEDS: Labetalol 100 MG Tablet PO SCH ×3 (08:53→17:56)
[2017-12-21] MEDS: Prenatal Vit/Ca/Iron/Folic Acid Tablet PO SCH (08:53)
[2017-12-21] MEDS: Acetaminophen 325 MG Tablet PO PRN (08:53)
[2017-12-21] MEDS ORDERED: Labetalol 100 MG Tablet PO SCH ×2 (09:00)
--- NOTE | 2017-12-21 12:08 | P.CONPSY ---
Provisional Diagnosis Admission Date: December 21, 2017 03:13 History of Present Illness Consult date: 12/21/17 Primary Care Provider: UNKNOWN Chief Complaint: suicidal ideation History of Present Illness: This is a request for a psychiatric consult. Documentation was reviewed, case was discussed with nursing and patient was evaluated. Patient is a 32-year-old female with an extensive history of severe cocaine use. Patient was transferred to the medical unit for hypertension. We are consulted today secondary to suicidal ideation. Patient is 20 weeks and is not on psychotropics at this time. Patient is pleasant but quite guarded and shy. She is cooperative with the interview. Her mood has been depressed. Her affect is blunted. She admits to suicidal ideation overdose on her medication. She denies intent of hurting herself in the hospital. Safety plan reviewed. Stressors include separation from her 4 children after she lost custody. Patient admits to cocaine use 3 times daily but says she does not suffer from withdrawal. She denies any other drugs or alcohol. She is unsure if she has had a history of manic episodes after criteria was reviewed. Past psych: Patient has been through treatment for cocaine dependence. She denies any outpatient psychiatric history however. She has had 2 admissions for suicidal ideation. She had one suicide attempt with cutting 2 years ago Past medical: Hypertension, asthma Past Famhx: Past Social: Patient has 4 kids and her family has custody. She is not employed at this time. She uses cocaine 3 times a day. Has had an extensive history with cocaine since age 24. Says she does not inject it as she does not like needles. She denies alcohol use. Denies marijuana use. Denies any other substances. She has a "baby daddy." Review of Systems All other systems reviewed negative except as stated in HPI PMFSH - History History Provided By: Patient - Medical / Surgical Hx Neg / Unobtainable Surgical History: No Previous Surgery - Medical History Medical History: Medical History (Last Reviewed 12/21/17 @ 12:04 by Lorenzo Rivas DO) No significant past surgical history Asthma Cocaine abuse Cocaine abuse affecting Hypertension affecting in second trimester - Family History Family History: Family History (Last Reviewed 12/21/17 @ 12:04 by Lorenzo Rivas DO) Other HTN (hypertension) - Social History I have reviewed the patient's Social History: Yes - Tobacco History Tobacco Use In Past 30 Days: Yes Smoking Status: Current every day smoker Tobacco Type: Cigarettes - Alcohol History How Often Do You Have a Drink Containing Alcohol: Never - Substance Use History Substance History: Active Abuse - Travel History History of Recent Travel: No Medications and Allergies Active Medications: Active Medications Acetaminophen (Tylenol) 650 mg PO Q4H PRN PRN Reason: PAIN 1-10 AND/OR FEVER >101F Last Admin: 12/21/17 08:53 Dose: 650 mg Al Hydrox/Mg Hydrox/Simethicone (Mag-Al Plus Susp Liq) 30 ml PO Q6H PRN PRN Reason: HYPERTENSION Al Hydroxide/Mg Hydroxide (Milk Of Magnesia Liq) 30 ml PO Q12H PRN PRN Reason: HEARTBURN Labetalol HCl (Trandate Inj) 10 mg IV.PUSH Q4H PRN PRN Reason: SBP> OR = 180, DBP> OR = 100 Labetalol HCl (Trandate) 100 mg PO TID [facility] Last Admin: 12/21/17 08:53 Dose: 100 mg Vit/Calcium/Iron/Folic Ac (Stuartnatal Plus 3) 1 tab PO DAILY [facility] Last Admin: 12/21/17 08:53 Dose: 1 tab Zolpidem Tartrate (Ambien) 5 mg PO HS PRN PRN Reason: SLEEP Allergies Allergy/AdvReac Type Severity Reaction Status Date / Time No Known Allergies Allergy Verified 12/19/17 18:45 Home Medications Medication Instructions Recorded Confirmed Type labetalol 100 mg PO TID 12/19/17 12/19/17 History Exam Vital signs: Vital Signs 12/21/17 03:54 12/21/17 04:20 12/21/17 05:00 Temperature 98.6 F Pulse Rate 101 H 104 H 106 H Respiratory Rate 16 Blood Pressure 139/71 Pulse Oximetry 100 12/21/17 06:00 12/21/17 07:00 12/21/17 08:00 Temperature Pulse Rate 102 H 108 H 108 H Respiratory Rate Blood Pressure Pulse Oximetry 12/21/17 08:36 12/21/17 09:00 12/21/17 10:00 Temperature 97.4 F L Pulse Rate 105 H 102 H 104 H Respiratory Rate 16 Blood Pressure 159/86 H Pulse Oximetry 99 12/21/17 11:35 Temperature 98.1 F Pulse Rate 99 H Respiratory Rate 16 Blood Pressure 134/68 Pulse Oximetry 98 Intake & Output 12/20/17 12/21/17 12/21/17 18:59 06:59 18:59 Intake Total 240 / 240 Balance 240 / 240 Weight 108 kg Intake: Oral 240 / 240 Other: # Voids 1 Date of Last Bowel Movement 12/21/17 Mental Status Examination Appearance: Disheveled Consciousness: Alert Orientation: x4 Motor Activity: Normal gait Speech: Slow, Stuttering Language: Adequate Fund of Knowledge: Adequate Attention and Concentration: Adequate Memory: Unremarkable Mood: Sad Affect: Sad, Blunt Thought Process & Associations: Intact Thought Content: Appropriate Hallucination Type: None Delusion Type: None Suicidal Ideation: Yes Suicidal Plan: Yes (Overdose) Suicidal Intention: No Homicidal Ideation: No Homicidal Plan: No Homicidal Intention: No Insight: Fair Judgment: Poor Assessment and Plan - Assessment (1) Major depressive disorder, recurrent severe without psychotic features Code(s): F33.2 - Major depressive disorder, recurrent severe without psychotic features Status: Acute (2) Cocaine abuse Code(s): F14.10 - Cocaine abuse, uncomplicated Status: Acute (3) Cocaine abuse Code(s): F14.10 - Cocaine abuse, uncomplicated Status: Acute - Plan Plan: Estimated LOS: [] days Continue with sitter. Risks and benefits of SSRI medication during was reviewed with patient and she said she would consider a medication but prefers not to be on a medication at this time. It is likely that her regular cocaine use and social circumstances are contributing to her suicidal ideation. I recommend admission to psychiatry once she is medically cleared Justification for Continued Inpatient Stay: Patient would decompensate in a less restrictive setting
[2017-12-21 18:41] LABS: Protein/Creatinine Ratio,Urine 0.18 (0.00-0.14)
[2017-12-22 05:20] LABS: Baso % (Auto) 0.4 % (0.0-2.0); Eos # (Auto) 0.2 th/mm3 (0.0-0.4); Eos % (Auto) 2.9 % (0.0-4.0); Hematocrit 33.3 % (35.0-46.0); Hemoglobin 11.5 gm/dL (11.6-15.3); Lymph # (Auto) 1.1 th/mm3 (1.0-4.8); Lymph % (Auto) 16.5 % (9.0-44.0); Mean Corpuscular HGB Conc 34.5 % (32.0-36.0); Mean Corpuscular Hemoglobin 29.7 pg (27.0-34.0); Mean Corpuscular Volume 86.2 fL (80.0-100.0); Mean Platelet Volume 6.9 fL (7.0-11.0); Mono # (Auto) 0.5 th/mm3 (0.0-0.9); Mono % (Auto) 7.7 % (0.0-8.0); Neut # (Auto) 4.8 th/mm3 (1.8-7.7); Neut % (Auto) 72.5 % (16.0-70.0); Platelet Count 268 th/mm3 (150-450); Red Blood Count 3.87 mil/mm3 (4.00-5.30); Red Cell Distribution Width 13.6 % (11.6-17.2); White Blood Count 6.7 th/mm3 (4.0-11.0)
[2017-12-22 05:33] LABS: Anion Gap 9 meq/L (5-15); Blood Urea Nitrogen 9 mg/dL (7-18); Carbon Dioxide 24.8 meq/L (21.0-32.0); Chloride 106 meq/L (98-107); Glomerular Filtration Rate Greater Than 89 mL/min (>89); Glucose,Random 98 mg/dL (74-106); Potassium 3.8 meq/L (3.5-5.1); Sodium 140 meq/L (136-145)
[2017-12-22] MEDS: Prenatal Vit/Ca/Iron/Folic Acid Tablet PO SCH (08:19)
[2017-12-22] MEDS: Labetalol 100 MG Tablet PO SCH (08:19)
--- NOTE | 2017-12-22 09:01 | P.OBANTE ---
Subjective Interval History: No problems or issues. Objective Vital Signs and I&O: Vital Signs 12/21/17 09:00 12/21/17 10:00 12/21/17 11:00 Temperature Pulse Rate 102 H 104 H 99 H Respiratory Rate Blood Pressure Pulse Oximetry 12/21/17 11:35 12/21/17 12:00 12/21/17 13:00 Temperature 98.1 F Pulse Rate 99 H 100 H 98 H Respiratory Rate 16 Blood Pressure 134/68 Pulse Oximetry 98 12/21/17 14:00 12/21/17 15:00 12/21/17 15:34 Temperature 97.8 F Pulse Rate 100 H 98 H 102 H Respiratory Rate 16 Blood Pressure 136/72 Pulse Oximetry 99 12/21/17 16:00 12/21/17 17:00 12/21/17 17:56 Temperature Pulse Rate 98 H 98 H Respiratory Rate Blood Pressure 139/66 Pulse Oximetry 12/21/17 18:00 12/21/17 19:00 12/21/17 20:00 Temperature 97.9 F Pulse Rate 104 H 97 H 99 H Respiratory Rate 16 Blood Pressure 126/58 L Pulse Oximetry 98 12/21/17 21:00 12/21/17 22:00 12/21/17 23:00 Temperature 98 F Pulse Rate 97 H 96 H 93 H Respiratory Rate 20 Blood Pressure 140/79 Pulse Oximetry 98 12/22/17 00:00 12/22/17 01:00 12/22/17 02:00 Temperature Pulse Rate 93 H 94 H 93 H Respiratory Rate Blood Pressure Pulse Oximetry 12/22/17 03:00 12/22/17 03:59 12/22/17 05:00 Temperature 98.4 F Pulse Rate 98 H 102 H 97 H Respiratory Rate 20 Blood Pressure 134/81 Pulse Oximetry 98 12/22/17 06:00 12/22/17 07:00 Temperature Pulse Rate 96 H 93 H Respiratory Rate Blood Pressure Pulse Oximetry Intake & Output 12/21/17 12/22/17 12/22/17 18:59 06:59 18:59 Intake Total 1146 / 1146 480 / 480 Output Total 1000 / 1000 1200 / 1200 Balance 146 / 146 -720 / -720 Weight 108 kg Intake: Oral 1146 / 1146 480 / 480 Output: Urine 1000 / 1000 1200 / 1200 Other: Date of Last Bowel Movement 12/21/17 12/21/17 # Bowel Movements 1 Lab and Micro Results: Laboratory Results - last 24 hr 12/21/17 12/21/17 12/22/17 18:00 18:00 05:05 WBC 6.7 RBC 3.87 L Hgb 11.5 L Hct 33.3 L MCV 86.2 MCH 29.7 MCHC 34.5 RDW 13.6 Plt Count 268 MPV 6.9 L Neut % (Auto) 72.5 H Lymph % (Auto) 16.5 [place] % (Auto) 7.7 Eos % (Auto) 2.9 Baso % (Auto) 0.4 Neut # (Auto) 4.8 Lymph # (Auto) 1.1 [place] # (Auto) 0.5 Eos # (Auto) 0.2 Baso # (Auto) 0.0 WBC Differential . Differential Comment Auto diff final Sodium Potassium Chloride Carbon Dioxide Anion Gap BUN Creatinine Estimated GFR Random Glucose Calcium Ur Random Creatinine 62 U Random Total Protein 11.3 Protein/Creatinin Ratio 0.18 H Chlam trachomat DNA PCR Not detected N.gonorrhoeae DNA (PCR) Not detected 12/22/17 05:05 WBC RBC Hgb Hct MCV MCH MCHC RDW Plt Count MPV Neut % (Auto) Lymph % (Auto) [place] % (Auto) Eos % (Auto) Baso % (Auto) Neut # (Auto) Lymph # (Auto) [place] # (Auto) Eos # (Auto) Baso # (Auto) WBC Differential Differential Comment Sodium 140 Potassium 3.8 Chloride 106 Carbon Dioxide 24.8 Anion Gap 9 BUN 9 Creatinine 0.61 Estimated GFR Greater than 89 Random Glucose 98 Calcium 8.0 L Ur Random Creatinine U Random Total Protein Protein/Creatinin Ratio Chlam trachomat DNA PCR N.gonorrhoeae DNA (PCR) Physical Exam: GENERAL: Well-nourished, well-developed patient. No acute distress. CARDIOVASCULAR: Regular rate RESPIRATORY: No accessory muscle use ABDOMEN/GI: Abdomen appears non-distended Assessment and Plan - Diagnosis (1) Cocaine abuse Code(s): F14.10 - Cocaine abuse, uncomplicated Status: Acute (2) 20 weeks gestation of Code(s): Z3A.20 - 20 weeks gestation of Status: Acute (3) Chronic hypertension affecting Code(s): O10.919 - Unspecified pre-existing hypertension complicating , unspecified trimester Status: Acute - Plan 32-year-old female at around 20 weeks being evaluated for hypertension and . - Stopped by to speak w/ patient and update her about her lab results. Counseled on avoidance of cocaine - 24 hour protein and OB US still pending Seen w/Dr. Cui
--- NOTE | 2017-12-22 10:46 | P.DS ---
Date of admission: 12/21/17 03:13 Primary care physician: UNKNOWN Brief History from admission: 32 y/o female with a history of asthma and hypertension and is currently 20 weeks was a transfer from medical psych for elevated BP. OB DR. Hood refused to admit patient so [facility] admitted to aid in BP control. Patient originary came in voluntarily from [facility] for evaluation of depression. She states she has been stressed out ever since having a baby 6 months ago. She has had suicidal thoughts for the last 2 days but does not have a plan. She has a history of suicide attempt by cutting her wrist. She has been using cocaine daily, and states she did not take her blood pressure pills yesterday. DS: Medications - Discharge Medications Prescriptions: labetalol 200 mg PO BID #60 tab DS: Summary Hospital Course: 32-year-old female with a history of depression and hypertension who is 20 weeks presented 3 days ago with suicidal ideations times 2 days. She has a history of cocaine abuse, has been using it daily. Following admission she had elevations in her blood pressure, this may be related to withdrawal from cocaine, she required IV labetalol but has since come under better control with p.o. labetalol alone. She has been running in the 130s and 140s systolic on 100 mg of labetalol 3 times daily. I am increasing this to 200 mg twice daily. At this point she is stable for transfer to med psych unit where she can proceed to be evaluated and cleared by psychiatry while being followed by our hospitalist team for final management of her blood pressure in preparation for discharge. - Time Spent with Patient Total time spent providing and/or coordinating discharge services: Less than 30 minutes Exam Vital signs: Vital Signs 12/21/17 11:00 12/21/17 11:35 12/21/17 12:00 Temperature 98.1 F Pulse Rate 99 H 99 H 100 H Respiratory Rate 16 Blood Pressure 134/68 Pulse Oximetry 98 12/21/17 13:00 12/21/17 14:00 12/21/17 15:00 Temperature Pulse Rate 98 H 100 H 98 H Respiratory Rate Blood Pressure Pulse Oximetry 12/21/17 15:34 12/21/17 16:00 12/21/17 17:00 Temperature 97.8 F Pulse Rate 102 H 98 H 98 H Respiratory Rate 16 Blood Pressure 136/72 Pulse Oximetry 99 12/21/17 17:56 12/21/17 18:00 12/21/17 19:00 Temperature 97.9 F Pulse Rate 104 H 97 H Respiratory Rate 16 Blood Pressure 139/66 126/58 L Pulse Oximetry 98 12/21/17 20:00 12/21/17 21:00 12/21/17 22:00 Temperature Pulse Rate 99 H 97 H 96 H Respiratory Rate Blood Pressure Pulse Oximetry 12/21/17 23:00 12/22/17 00:00 12/22/17 01:00 Temperature 98 F Pulse Rate 93 H 93 H 94 H Respiratory Rate 20 Blood Pressure 140/79 Pulse Oximetry 98 12/22/17 02:00 12/22/17 03:00 12/22/17 03:59 Temperature 98.4 F Pulse Rate 93 H 98 H 102 H Respiratory Rate 20 Blood Pressure 134/81 Pulse Oximetry 98 12/22/17 05:00 12/22/17 06:00 12/22/17 07:00 Temperature 98.1 F Pulse Rate 97 H 96 H 94 H Respiratory Rate 16 Blood Pressure 148/91 H Pulse Oximetry 97 12/22/17 08:00 12/22/17 09:00 12/22/17 10:00 Temperature Pulse Rate 93 H 92 H 90 Respiratory Rate Blood Pressure Pulse Oximetry Intake & Output 12/21/17 12/22/17 12/22/17 18:59 06:59 18:59 Intake Total 1146 / 1146 480 / 480 Output Total 1000 / 1000 1200 / 1200 Balance 146 / 146 -720 / -720 Weight 108 kg Intake: Oral 1146 / 1146 480 / 480 Output: Urine 1000 / 1000 1200 / 1200 Other: Date of Last Bowel Movement 12/21/17 12/21/17 # Bowel Movements 1 Results Procedures completed during hospitalization: none Labs on day of discharge: Labs from last 24 hours 12/22/17 12/22/17 12/22/17 09:25 05:05 05:05 WBC 6.7 RBC 3.87 L Hgb 11.5 L Hct 33.3 L MCV 86.2 MCH 29.7 MCHC 34.5 RDW 13.6 Plt Count 268 MPV 6.9 L Neut % (Auto) 72.5 H Lymph % (Auto) 16.5 [place] % (Auto) 7.7 Eos % (Auto) 2.9 Baso % (Auto) 0.4 Neut # (Auto) 4.8 Lymph # (Auto) 1.1 [place] # (Auto) 0.5 Eos # (Auto) 0.2 Baso # (Auto) 0.0 WBC Differential . Differential Comment Auto diff final Sodium 140 Potassium 3.8 Chloride 106 Carbon Dioxide 24.8 Anion Gap 9 BUN 9 Creatinine 0.61 Estimated GFR Greater than 89 Random Glucose 98 Calcium 8.0 L Ur Random Creatinine U Random Total Protein Ur 24 Hour Volume 2450 Creatinine Clearance Pending Creat Clearance 24 Hr Pending Ur Total Protein 24 Hr 274 H Protein/Creatinin Ratio Chlam trachomat DNA PCR N.gonorrhoeae DNA (PCR) 12/21/17 12/21/17 18:00 18:00 WBC RBC Hgb Hct MCV MCH MCHC RDW Plt Count MPV Neut % (Auto) Lymph % (Auto) [place] % (Auto) Eos % (Auto) Baso % (Auto) Neut # (Auto) Lymph # (Auto) [place] # (Auto) Eos # (Auto) Baso # (Auto) WBC Differential Differential Comment Sodium Potassium Chloride Carbon Dioxide Anion Gap BUN Creatinine Estimated GFR Random Glucose Calcium Ur Random Creatinine 62 U Random Total Protein 11.3 Ur 24 Hour Volume Creatinine Clearance Creat Clearance 24 Hr Ur Total Protein 24 Hr Protein/Creatinin Ratio 0.18 H Chlam trachomat DNA PCR Not detected N.gonorrhoeae DNA (PCR) Not detected Discharge Plan - Discharge Disposition Patient Disposition: 64 Disc To Psych Care Facility - Discharge Condition Condition: Good - Discharge Order Discharge Orders: Discharge Order (Routine); Ordered 12/22/17 Ordered By: Israel Cummings - Discharge Details Discharge Comment: Med-Psych unit - Physicians Team Primary Care Provider: UNKNOWN, Attending Provider: Israel Cummings Other Providers: Alberto Hood MD ; Bro Webster MD - Rxs /Orders / Referrals /Forms Prescriptions: New labetalol 200 mg Tablet 200 mg PO BID Qty: 60 RF: 0 Discontinued labetalol 100 mg Tablet 100 mg PO TID Referrals: UNKNOWN, [Primary Care Provider] - See Instructions - Discharge Instructions Patient Printed Instructions: Labetalol (By mouth), Depression (DC)
[2017-12-22 11:57] VITALS: O2SAT 100
[2017-12-22] MEDS: Acetaminophen 325 MG Tablet PO PRN (20:41)
[2017-12-22] MEDS: Labetalol 200 MG Tablet PO SCH (20:42)
[2017-12-23] MEDS: Prenatal Vit/Ca/Iron/Folic Acid Tablet PO SCH (08:02)
[2017-12-23] MEDS: Labetalol 200 MG Tablet PO SCH (08:02)
--- NOTE | 2017-12-23 08:05 | P.OBANTE ---
Subjective Interval History: Patient improved over admission, blood pressure is within normal limits well controlled on labetalol, ultrasound within normal limits for 20-week gestation. 24-hour urine protein showed 274 mg protein Objective Vital Signs and I&O: Vital Signs 12/22/17 09:00 12/22/17 10:00 12/22/17 11:00 Temperature 98.0 F Pulse Rate 92 H 90 90 Respiratory Rate 16 Blood Pressure 162/80 H Pulse Oximetry 100 12/22/17 12:00 12/22/17 13:00 12/22/17 14:00 Temperature Pulse Rate 95 H 96 H 98 H Respiratory Rate Blood Pressure Pulse Oximetry 12/22/17 15:00 12/22/17 16:00 12/22/17 17:00 Temperature 98.2 F Pulse Rate 93 H 92 H 93 H Respiratory Rate 16 Blood Pressure 169/77 H Pulse Oximetry 100 12/22/17 18:00 12/22/17 19:00 12/22/17 20:00 Temperature 98.4 F Pulse Rate 92 H 99 H 98 H Respiratory Rate 16 Blood Pressure 175/97 H Pulse Oximetry 100 12/22/17 21:00 12/22/17 22:00 12/22/17 23:00 Temperature 98.6 F Pulse Rate 92 H 91 H 88 Respiratory Rate 16 Blood Pressure 146/65 H Pulse Oximetry 100 12/23/17 00:00 12/23/17 01:00 12/23/17 02:00 Temperature Pulse Rate 92 H 95 H 90 Respiratory Rate Blood Pressure Pulse Oximetry 12/23/17 03:00 12/23/17 04:00 12/23/17 04:59 Temperature 98.6 F Pulse Rate 90 91 H 89 Respiratory Rate 16 Blood Pressure 119/57 L Pulse Oximetry 100 12/23/17 05:59 Temperature Pulse Rate 93 H Respiratory Rate Blood Pressure Pulse Oximetry Intake & Output 12/22/17 12/23/17 12/23/17 18:59 06:59 18:59 Intake Total 1500 / 1500 480 / 480 Output Total 1250 / 1250 700 / 700 Balance 250 / 250 -220 / -220 Weight 108 kg Intake: Oral 1500 / 1500 480 / 480 Output: Urine 1250 / 1250 700 / 700 Other: Date of Last Bowel Movement 12/22/17 12/21/17 # Bowel Movements 1 Lab and Micro Results: Laboratory Results - last 24 hr 12/22/17 09:25 Ur 24 Hour Volume 2450 Creatinine Clearance 0.61 Creat Clearance 24 Hr 150 H Ur Total Protein 24 Hr 274 H Physical Exam: GENERAL: Well-nourished, well-developed patient. CARDIOVASCULAR: Regular rate and rhythm without murmurs, gallops, or rubs. RESPIRATORY: Breath sounds equal bilaterally. No accessory muscle use. ABDOMEN/GI: Abdomen soft, non-tender. Fundus: [At umbilicus-] GENITOURINARY: External Genitalia: intact and normal in appearance EXTREMITIES: No cyanosis or edema, non-tender, without signs of DVT. Assessment and Plan - Diagnosis (1) Chronic hypertension affecting Code(s): O10.919 - Status: Acute (2) 20 weeks gestation of Code(s): Z3A.20 - Status: Acute - Plan 32-year-old female at around 20 weeks being evaluated for hypertension and . -Blood pressure stable on oral labetalol twice daily Ultrasound consistent with dates 20 weeks gestation 24-hour protein which is 274 mg All of the lab within normal limits OB is going to sign off at this point and allow her OB doctor Dr. Diop in [place] to resume obstetric care
[2017-12-23 09:06] VITALS: BP 154/90; RESP 18; TEMP 98.2
[2017-12-23 09:11] VITALS: PULSE 90
--- NOTE | 2017-12-23 09:20 | P.AMA ---
AMA Note - AMA Note AMA Statement: Patient Nicolasa Green has decided to leave the hospital against medical advice. This patient has the capacity to refuse care and understands the risks of leaving, including permanent disability and/or , and has had an opportunity to ask questions about his/her condition. The patient has been informed that he/she may return for care at any time, and follow up has been arranged/advised. Patient was admitted voluntarily with suicidal ideations. She states today that she has to go home to take care of her little one while her mom works. She states that she had a bad day and that she is not really suicidal. She has regular follow-up with OB but I explained that she needs to be on a slightly higher dose of labetalol based on the blood pressures we have been seeing. I recommended that she stop cocaine immediately and that if she is even tempted to use again she should follow-up at a treatment center or reach out to her OB or primary care doctor to help her facilitate that. She must never use cocaine again for the safety of herself and her new unborn child. - AMA Note Discharge Disposition: 07 Against Medical Advice Patient Condition on Discharge: Good
== END 2017-12-23 10:09 | disposition left against medical advice (07) ==
LOC: HCPC 03:13
PROVIDERS: ADMIT Family Medicine; ATTEND Family Medicine